=== PATIENT | male | born 1960 | race Caucasian/White ===

== ENCOUNTER 2023-09-05 11:06 | Outpatient (CLI) | payer OTHER, SELFPAY ==
[2023-09-10 12:58] LABS: Apolipoprotein B 113 mg/dL (<90)
== END 2023-09-05 11:07 | disposition home or self-care (01) ==
LOC: ANHGOSHLAB 11:07
PROVIDERS: PCP Internal Medicine; Visit Provider Nurse Practitioner
DX: E78.5 Hyperlipidemia, unspecified (principal)
CPT/HCPCS: 36415; 82172